=== PATIENT | female | born 1995 | race Caucasian/White ===

== ENCOUNTER 2022-04-11 07:13 | Emergency (ER) | payer OTHER, SELFPAY ==
[2022-04-11 07:34] VITALS: BP 140/88; PULSE 87; RESP 20; TEMP 36.6; O2SAT 100
--- NOTE | 2022-04-11 07:40 | ED.ABDPAIN ---
HPI - Abdominal Pain General Chief Complaint: Abdominal Pain Stated Complaint: abd pain Time Seen by Provider: 04/11/22 07:31 Source: patient and family (mother) Mode of arrival: Ambulatory Limitations: no limitations History of Present Illness HPI narrative: This is a 27-year-old female with no known medical issues. Patient states she has had lower pelvic pain left greater than right for the last 4-5 weeks. About 5 weeks ago she had an intense episode of pain that resolved and week later developed constant sometimes sharp needle sensation in her lower abdomen. Patient states that is been persistent sort of both sides little bit more on the left. She denies fevers or chills. She had nausea when the pain was particularly intense before but not actively no vomiting. She has been constipated she states she has bowel movements but they are difficult. She has tried magnesium but no other stool softeners. She occasionally has taken [id number] pain medications such as Tylenol or ibuprofen but nothing today. She presents today as she has had increasing pain over the past 4 weeks. She denies dysuria, urgency or frequency. No vaginal discharge or bleeding. She does get regular menses. She denies sexual activity. She had an episode in 2013 with very intense abdominal pain they thought was likely an ovarian cyst that ruptured but never sought medical care. She has not been seen for this before. No daily medications. No prior surgeries. No known drug allergies. No tobacco, alcohol or illicit. Patient states she lives in [place] and is visiting the area. She is accompanied by her mother who notes that she herself was diagnosed with uterine cancer 2 years ago. Related Data Allergies Allergy/AdvReac Type Severity Reaction Status Date / Time No Known Drug Allergies Allergy Verified 04/11/22 07:34 Review of Systems Review of Systems ROS Unobtainable: All systems reviewed & are unremarkable except as noted in HPI and below Patient History Social History Smoking Status: Never smoker Exam Narrative Exam Narrative: GENERAL: Alert and oriented x three, mild distress. HEENT: Head normocephalic, atraumatic, EOMI, pupils reactive, face symmetric, moist mucous membranes NECK: Supple, full range of motion CARDIOVASCULAR: Regular rate and rhythm without murmurs, rubs or gallops. RESPIRATORY: Breath sounds equal bilaterally, no wheezes rales or rhonchi. ABDOMEN: Soft, mild lower pelvic pain, left greater than right. Bowel sounds all 4 quadrants. No guarding or rebound, rigidity, no mass : No CVA tenderness EXTREMITIES: Normal range of motion, no clubbing or edema. Neurovascularly intact NEUROLOGICAL: Cranial nerves II through XII grossly intact. Moving all extremities SKIN: Warm, dry, no petechiae, no rashes or lesions. Initial Vital Signs Initial Vital Signs: Vital Signs Temperature 97.9 F 04/11/22 07:34 Pulse Rate 87 04/11/22 07:34 Respiratory Rate 20 04/11/22 07:34 Blood Pressure 140/88 04/11/22 07:34 Pulse Oximetry 100 04/11/22 07:34 Course Orders Ordered: Discontinued Medications Sodium Chloride (Normal Saline 0.9%) 1,000 mls @ 1,000 mls/hr IV BOLUS ONE Stop: 04/11/22 08:54 Last Infusion: 04/11/22 09:26 Dose: 0 mls/hr Documented by: Admin: 04/11/22 08:17 Dose: 1,000 mls/hr Documented by: TERESA Ketorolac Tromethamine (Ketorolac 30 Mg/Ml Vial) 15 mg IV NOW ONE Stop: 04/11/22 07:57 Last Admin: 04/11/22 08:17 Dose: 15 mg Documented by: TERESA Vital Signs Vital signs: Vital Signs - 8 hr 04/11/22 07:34 Temperature 97.9 F Pulse Rate 87 Respiratory Rate 20 Blood Pressure 140/88 Pulse Oximetry 100 MDM - Abdominal Pain Lab Data Result diagrams: 04/11/22 08:20 04/11/22 08:20 Labs: Lab Results 04/11/22 04/11/22 Range/Units 08:20 08:20 WBC 3.1 L (4.5-11.0) X10^3/uL RBC 4.53 (4.0-5.2) X10^6/uL Hgb 13.7 (12.0-16.0) g/dL Hct 39.8 (36-46) % MCV 87.9 (80-100) fL MCH 30.3 (26-34) PG MCHC 34.5 (30-36) % RDW 12.8 (11.6-14.8) % Plt Count 240 (150-400) X10^3/uL Neut % (Auto) 43.1 L (50-75) % Lymph % (Auto) 42.4 H (25-40) % [place] % (Auto) 8.6 (3-14) % Eos % (Auto) 4.4 H (2-4) % Baso % (Auto) 1.5 (0-2) % Neut # (Auto) 1300 L (6925-8782) /uL Lymph # (Auto) 1300 (1646-4721) /uL [place] # (Auto) 300 (0-900) /uL Eos # (Auto) 100 (0-450) /uL Baso # (Auto) 0 (0-100) /uL Sodium 140 (137-145) mmol/L Potassium 3.9 (3.4-5.1) mmol/L Chloride 104 (98-107) mmol/L Carbon Dioxide 27 (22-32) mmol/L BUN 4 L (7-17) mg/dL Creatinine 0.71 (0.52-1.04) mg/dL Estimated GFR > 60 (>60) mL/min BUN/Creatinine Ratio 5.6 L (6-22) Glucose 91 (70-100) mg/dL Calcium 9.5 (8.4-10.2) mg/dL Total Bilirubin 0.9 (0.2-1.3) mg/dL AST 29 (14-36) IU/L ALT 19 (<35) IU/L Alkaline Phosphatase 42 (38-126) U/L Total Protein 8.2 (6.3-8.2) g/dL Albumin 4.9 (3.5-5.0) g/dL Globulin 3.3 (1.7-4.1) g/dL Albumin/Globulin Ratio 1.5 (1.0-2.8) Lipase 147 (23-300) U/L Point of care testing: Point of Care Testing Test Results Negative Urine Dip Bedside Urine Glucose Negative Bedside Urine Bilirubin - Negative Bedside Urine Ketone - Negative Urine Specific [place] 1.010 Bedside Urine Occult Blood - Negative Bedside Urine Protein - Negative Bedside Urine Urobilinogen - Negative Bedside Urine Nitrite - Negative Bedside Urine Leukocytes - Negative Esterase Imaging Data pelvic US: Radiologist's Impression: Venus Keene??27??F??1995 ? Allergy/Adv: No Known Drug Allergies Close Pelvis Ultrasound (Signed) Gisel Markham - 04/11/22 Launch?[address] [address] Ultrasound Report Signed Patient: Venus Keene MR#: [id number] : 1995 Acct:[id number] Age/Sex: 27 / F Date of Service: 04/11/22 Loc: ED Accession Number: [id number] ?? Procedure: US pelvic complete Ordering Provider: Jihan Bang D.O. PROCEDURE:? US PELVIC COMPLETE ? INDICATIONS:? PAIN ? TECHNIQUE:? Real-time scanning was performed of the pelvic organs, with image documentation.? Additional endovaginal scanning was necessary due to incomplete visualization of the adnexal and endometrial structures by transabdominal scanning.? ? COMPARISON:? None. ? FINDINGS:? ?? Uterus:? Uterus is anteverted and normal in size at 7.0 x 3.6 x 4.9 cm. The myometrium is homogeneous. ? The endometrium measures 5 point mm combined thickness.? ? Ovaries:? The right ovary measures 3.7 x 2.8 x 2.7 cm. The left ovary measures 2.7 x 2.3 x 2.6 cm.? Left ovary demonstrates a focus of decreased echogenicity measuring 12 x 13 x 15 mm. ? Other:? No pathologic free abdominal or pelvic fluid. ? ? IMPRESSION:? ? Prominent follicle/small simple left ovarian cyst. ? ? We strive to produce accurate, complete, and clear reports of imaging services. To assist us in improving patient care, this report was composed using standard report templates and voice recognition software. Therefore, it may contain abnormal punctuation, insertions and/or omissions. Occasional wrong-word or sound-alike substitutions may occur. Though we review the report and make efforts to correct it, we do recommend that the report be read carefully in proper context to recognize any text inaccuracies. ? ? Dictated by: Gisel Markham M.D. on 04/11/2022 at 8:57 ? ? Approved by: Gisel Markham M.D. on 04/11/2022 at 9:00? MDM Narrative Medical decision making narrative: This is a 27-year-old female who comes in with complaint of abdominal discomfort that is been persistent for the last month. Constipation is certainly on the differential although patient does have some localized tenderness in the left and right lower quadrants mainly in the left. Patient denies sexual activity. Plan for urine, labs and pelvic ultrasound for evaluation discussed findings with patient and family. Patient has a left ovarian cyst, persistent constipation which she has described with slightly low white count but otherwise normal labs. Urine does not show any signs of infection. is negative. CT abdomen pelvis was also discussed but was deferred at this time. Discussed if patient has persistent or frequent ovarian cyst that are causing problems oral contraceptive may be helpful. Patient and I also discussed to increase her fluid intake which she has not been doing and recommended a stool softener for the short-term. Return precautions discussed. All questions answered. Discharge Plan Departure Patient Disposition: Home Clinical Impression: Pelvic pain, Cyst of left ovary Activity Restrictions/Additional Instructions: Please follow-up if you have persistent symptoms. You do have a small left ovarian cyst today I would recommend taking MiraLax once daily until constipation improved. It is important to drink plenty of fluids daily 6-8 glasses of water or other liquids daily will help with normal regular bowel movements. You can take Tylenol up to a 1000 mg every 6 hours and/or ibuprofen up to 600 mg every 6 hours as needed. Please return for fevers, rapidly worsening abdominal, back or flank pain, persistent vomiting, passing out, black or bloody stools, difficulty with urination, new vaginal bleeding or discharge or other new or concerning symptoms.
[2022-04-11] MEDS: KETOROLAC 30 MG/ML VIAL 15 MG IV (08:17)
[2022-04-11] MEDS: SODIUM CHLORIDE 0.9% 1,000 ML 1000 ML IV (08:17)
[2022-04-11 08:34] LABS: Add Manual Diff / Slide Review NO; Basophils Absolute Auto 0 /uL (0-100); Basophils Percent Auto 1.5 % (0-2); Eosinophils Absolute Auto 100 /uL (0-450); Eosinophils Percent Auto 4.4 % (2-4); Hematocrit 39.8 % (36-46); Hemoglobin 13.7 g/dL (12.0-16.0); Lymphocytes Absolute Auto 1300 /uL (1100-4500); Lymphocytes Percent Auto 42.4 % (25-40); Mean Corpuscular HGB Conc 34.5 % (30-36); Mean Corpuscular Hemoglobin 30.3 PG (26-34); Mean Corpuscular Volume 87.9 fL (80-100); Monocytes Absolute Auto 300 /uL (0-900); Monocytes Percent Auto 8.6 % (3-14); Neutrophils Absolute Auto 1300 /uL (1500-7000); Neutrophils Percent Auto 43.1 % (50-75); Platelet Count 240 X10^3/uL (150-400); Red Blood Cell Count 4.53 X10^6/uL (4.0-5.2); Red Cell Distribution Width 12.8 % (11.6-14.8); White Blood Cell Count 3.1 X10^3/uL (4.5-11.0)
--- NOTE | 2022-04-11 08:38 | DI.US.S_ITS ---
PROCEDURE: US PELVIC COMPLETE INDICATIONS: PAIN TECHNIQUE: Real-time scanning was performed of the pelvic organs, with image documentation. Additional endovaginal scanning was necessary due to incomplete visualization of the adnexal and endometrial structures by transabdominal scanning. COMPARISON: None. FINDINGS: Uterus: Uterus is anteverted and normal in size at 7.0 x 3.6 x 4.9 cm. The myometrium is homogeneous. The endometrium measures 5 point mm combined thickness. Ovaries: The right ovary measures 3.7 x 2.8 x 2.7 cm. The left ovary measures 2.7 x 2.3 x 2.6 cm. Left ovary demonstrates a focus of decreased echogenicity measuring 12 x 13 x 15 mm. Other: No pathologic free abdominal or pelvic fluid. IMPRESSION: Prominent follicle/small simple left ovarian cyst. We strive to produce accurate, complete, and clear reports of imaging services. To assist us in improving patient care, this report was composed using standard report templates and voice recognition software. Therefore, it may contain abnormal punctuation, insertions and/or omissions. Occasional wrong-word or sound-alike substitutions may occur. Though we review the report and make efforts to correct it, we do recommend that the report be read carefully in proper context to recognize any text inaccuracies. Dictated by: Gisel Markham M.D. on 04/11/2022 at 8:57 Approved by: Gisel Markham M.D. on 04/11/2022 at 9:00
[2022-04-11 08:46] LABS: Alanine Aminotransferase 19 IU/L (<35); Albumin 4.9 g/dL (3.5-5.0); Albumin Globulin Ratio 1.5 (1.0-2.8); Alkaline Phosphatase 42 U/L (38-126); Aspartate Aminotransferase 29 IU/L (14-36); BUN Creatinine Ratio 5.6 (6-22); Bilirubin Total 0.9 mg/dL (0.2-1.3); Blood Urea Nitrogen 4 mg/dL (7-17); Calcium 9.5 mg/dL (8.4-10.2); Carbon Dioxide 27 mmol/L (22-32); Chloride 104 mmol/L (98-107); Estimated Glomerular Filt Rate > 60 mL/min (>60); Globulin 3.3 g/dL (1.7-4.1); Glucose 91 mg/dL (70-100); HEMOLYSIS < 15 (0-50); Lipase 147 U/L (23-300); Potassium 3.9 mmol/L (3.4-5.1); Sodium 140 mmol/L (137-145); Total Protein 8.2 g/dL (6.3-8.2)
[2022-04-11 09:27] VITALS: BP 108/70; PULSE 77; RESP 17; O2SAT 98
== END 2022-04-11 09:30 | disposition home or self-care (01) ==
PROVIDERS: Emergency Provider Emergency Medicine
DX: R10.2 Pelvic and perineal pain (principal); N83.202 Unspecified ovarian cyst, left side; K59.00 Constipation, unspecified
CPT/HCPCS: 36415; 76830; 76856; 80053; 81003; 81025; 83690; 85025; 96361; 96374; 99284; J1885